=== PATIENT | female | born 1945 | race Caucasian/White ===

== ENCOUNTER → 2020-05-13 | Outpatient (CLI) | payer MEDICARE, OTHER ==
[~2020-05-13] MED LIST: ATENOLOL50 MG; CARDIZEM SR120 MG; CIPRO500 MG PO; COQ1030 MG PO; FISH OIL 10001000 MG PO; MULTIPLE VITAMI1 CAP PO; TIZANIDINE4 MG; TRIAMTERENE/HCT1 CAP; VITAMIN D1000 IU
== END | disposition home or self-care (01) ==
LOC: MRI 12:38
PROVIDERS: ATTEND Psychiatry & Neurology Neurology
DX: I67.82 Cerebral ischemia (principal); H74.8X3 Other specified disorders of middle ear and mastoid, bilateral; F03.90 Unspecified dementia, unspecified severity, without behavioral disturbance, psychotic disturbance, mood disturbance, and anxiety; R47.01 Aphasia

== ENCOUNTER → 2020-08-26 | Outpatient (CLI) | payer MEDICARE, OTHER | END | disposition home or self-care (01) | LOC: COVID19 11:27 | PROVIDERS: ATTEND Family Medicine | DX: Z20.822 Contact with and (suspected) exposure to COVID-19 (principal) ==